=== PATIENT | male | born 1980 | race Caucasian/White ===

== ENCOUNTER 2024-03-28 06:23 | Day surgery (SDC) | payer OTHER, SELFPAY ==
[2024-03-28] VITALS (11 sets, daily range): BP systolic 92–122; BP diastolic 52–71; BMI 27.8
[2024-03-28] MEDS: NORMOSOL-R 1000 IV (07:58)
[2024-03-28] MEDS: CELEBREX 200 MG PO (07:59)
[2024-03-28] MEDS: TYLENOL 1000 MG PO (08:00)
--- NOTE | 2024-03-28 09:18 | W.IMMPOSTOP ---
Addendum entered and electronically signed by Jesse Gómez MD 03/28/24 09:39:
Spoke with Rehana, spouse, and updated her on the surgery
Original Note:
Surgical Immed Post Op Note
-
Primary Surgeon: Jesse Gómez MD
Assisting Surgeon: Vinay Umanzor, resident
Pre-op Diagnosis: Anal fissure
Post-op Diagnosis: Anal fissure
Procedure Performed: Exam under anesthesia, Botox injection of the internal anal sphincter, fissurectomy, bilateral pudendal nerve block
Anesthesia Type: Local with sedation
Specimen / Cultures: None
Estimated Blood Loss: 5 mL
Complications: None
Operative Findings: Per op note
--- NOTE | 2024-03-28 09:27 | OR.RPT ---
Operative Report
Operative Report
DATE OF OPERATION: 03/28/2024
SURGEON: Jesse Gómez MD
PREOPERATIVE DIAGNOSIS: Anal fissure
POSTOPERATIVE DIAGNOSIS: Anal fissure
OPERATION: Exam under anesthesia, injection of botox into the internal anal sphincter, fissurectomy, bilateral pudendal nerve block
ASSISTANTS:
1. Francisco Umanzor, resident
ANESTHESIA: MAC w/ local
ESTIMATED BLOOD LOSS: 5 mL
FINDINGS:
1. Anal fissure in the posterior midline was essentially closed with friable scar, but easily reopened with minimal manipulation; after diagnostic anoscopy, the fissure measured about 10 mm x 5 mm; fulgurated the fissure base and injected Botox in
4 quadrants of the internal sphincter
2. No other concerning anal pathology noted
SPECIMENS:
1. None
DRAINS: N/A
COMPLICATIONS: None
INDICATIONS: The patient is a 43-year-old male who presented to my office with severe anal pain and was discovered to have an anal fissure. On initial evaluation, anoscopy was unable to be performed due to pain. After a trial of nonoperative
measures, including nifedipine/lidocaine cream, the pain persisted. Therefore, the patient was recommended to have surgery. The operation was discussed with the patient in detail, including the risks, benefits and alternatives. Risks described
included, but not limited to, bleeding, infection, urinary retention, damage to nearby structures such as the anal sphincter, fecal incontinence, recurrence, and anesthetic risks per anesthesia. The patient understood and agreed to proceed. The
consent was signed and placed in the chart.
PROCEDURE IN DETAIL: The patient was brought to the operating room. The patient was then placed on the operating table in prone position. Sequential compression devices were placed bilaterally. Sedation was commenced without complication. Two
seat belts were secured around the legs and upper back. The buttocks were taped apart. The perineum was shaved, prepped and draped in the usual fashion. A time-out was then performed verifying the correct patient, procedure, operative site,
positioning, and special equipment.
Local anesthesia used was a mixture of 60 mL of 0.25% Marcaine epinephrine and 0.6 mg of dexamethasone. 40 mL was injected perianally at the beginning of the case. The anorectal exam was performed assessing all four quadrants of the anal canal
using Hill-Narayanan retractors in progressively increasing size. The posterior midline anal fissure was essentially closed, but the scar was clearly delicate and not well-healed. With minimal manipulation to expose the area, the fissure reopened.
The underlying sphincter was vaguely visible, but covered in granulation tissue. After exposing the area with Hill-Anrayanan retractors, the fissure measured about 10 mm in length and 5 mm wide. The internal sphincter was noted to be hypertonic and
would not accommodate the largest Hill-Narayanan retractor. The remaining quadrants of the anal canal were evaluated and no other pathology was noted.
100 units of Botox was drawn up with 2 mL of sterile saline. Using a 30-gauge needle, the Botox was injected in 4 quadrants in equal portions, specifically 25 units in the anterior midline, right lateral quadrant, posterior midline and left lateral
quadrant. Care was taken to avoid incidental injection into the external sphincter. The fissure was fulgurated with electrocautery to encourage wound healing.
Hemostasis was achieved. At the end of the case, the remaining 20 mL of local were injected. 5 mL was injected bilaterally for a pudendal nerve block. 10 mL was injected around the surgical site and perianally. Hemostasis was reassessed once more
using the small Hill-Narayanan and was confirmed. Surgicel was placed in the operative site prophylactically.
At this point, the procedure was complete. All needle, sponge and instrument counts were correct. The patient tolerated the procedure well and was transferred to the recovery room in stable condition with gauze dressing in place secured with silk
tape.
Of note, Francisco Umanzor, resident, was necessary during this procedure for traction, countertraction, and exploratory purposes. I was present for the entire duration of the case.
DICTATED BY: Jesse Gómez MD
== END 2024-03-28 11:20 | disposition home or self-care (01) ==
LOC: SDS 06:23
PROVIDERS: ATTENDING PHYSICIAN Surgery; FAMILY PHYSICIAN Internal Medicine
DX: K60.2 Anal fissure, unspecified (principal)
CPT/HCPCS: 45990; 46505; J0585